=== PATIENT | female | born 1995 | race Caucasian/White ===

== ENCOUNTER 2021-11-05 19:05 | Emergency (ER) | payer MEDICAID ==
[~2021-11-05] VITALS: Ht 149.9 cm; Wt 59.1 kg
[2021-11-05 19:11] VITALS: BP 119/74
== END 2021-11-05 21:01 | disposition left against medical advice (07) ==
LOC: ER 19:07
DX: O26.891 Other specified pregnancy related conditions, first trimester (principal); Z3A.01 Less than 8 weeks gestation of pregnancy; Z53.21 Procedure and treatment not carried out due to patient leaving prior to being seen by health care provider